=== PATIENT | female | born 1960 | race Caucasian/White ===

== ENCOUNTER → 2017-07-01 | Outpatient (CLI) | payer BC ==
[~2017-07-01] MED LIST: FISH OIL 1,0001 EA10 PO; HYDROCHLOROTHIA25 MG PO; MONTELUKAST SOD10 MG PO; RANITIDINE HCL300 MG PO; VENLAFAXINE HCL75 M3 PO; VITAMIN B-125000 MC1 PO
== END | disposition home or self-care (01) ==
LOC: CDC 10:12
DX: M79.642 Pain in left hand (principal); M19.042 Primary osteoarthritis, left hand; M65.349 Trigger finger, unspecified ring finger
CPT/HCPCS: 93000